=== PATIENT | female | born 1980 | race Caucasian/White ===

== ENCOUNTER 2022-04-19 21:38 | Emergency (ER) | payer MEDICARE ==
[~2022-04-19] VITALS: Ht 180.3 cm; Wt 103.8 kg
[2022-04-19] MEDS ORDERED: CYCLOBENZAPRINE10 MG PO (22:23)
[2022-04-19] MEDS ORDERED: TRAZODONE HCL50 MG PO (22:23)
[2022-04-19] MEDS ORDERED: OXYCODONE HCL5 MG PO ×2 (22:24→22:25)
--- OUTSIDE RECORDS SUMMARY | 2022-04-20 01:08 | XMS ---
PreManage Notification: NIKUNJ GAMBLE Security Help Desk Support Specialist Events No recent Security Events currently on file CRITERIA MET - [facility] There are no care providers on record at this time. Samara has no Care Guidelines for this patient. Frida VISIT COUNT (12 MO.) 1 NIKITA Gibson TOTAL 1 NOTE: Visits indicate total known visits. ED/UCC VISIT TRACKING (12 MO.) 04/19/2022 21:38 NIKITA Rodríguez OR TYPE: Emergency COMPLAINT: - LT SIDE ABD PAIN INPATIENT VISIT TRACKING (12 MO.) No inpatient visits to display in this time frame [id number]
== END 2022-04-20 01:01 | disposition home or self-care (01) ==
LOC: ED 21:38
DX: R10.32 Left lower quadrant pain (principal); K80.20 Calculus of gallbladder without cholecystitis without obstruction; Z90.710 Acquired absence of both cervix and uterus; Z87.42 Personal history of other diseases of the female genital tract; Z88.2 Allergy status to sulfonamides; Z88.5 Allergy status to narcotic agent; Z88.8 Allergy status to other drugs, medicaments and biological substances
CPT/HCPCS: 36415; 74176; 80053; 81001; 83690; 85025; J1885; J7121